=== PATIENT | male | born 1955 | race African-American/Black ===

== ENCOUNTER 2016-11-24 22:29 | Emergency (ER) | payer MEDICAID ==
[~2016-11-24] VITALS: Ht 170.2 cm; Wt 81.6 kg
[2016-11-24 22:35] VITALS: BP 115/70
[2016-11-24] MEDS ORDERED: NKM (22:42)
[2016-11-24 22:45] VITALS: BP 122/70
[2016-11-24] MEDS ORDERED: MECLIZINE HCL12.5 MG ORAL (23:05)
[2016-11-24] MEDS ORDERED: Meclizine 25mg tab ORAL ONE (23:15)
--- NOTE | 2016-11-24 23:26 | Emergency Room Report ---
History of Present Illness General Chief Complaint: Dizziness Source: Patient Present Illness HPI 61-year-old male no significant past medical history presenting with the room spinning for one day. Patient states that he experiences sudden onset room spinning/dizziness, states when he bent down to get something, last for 10 seconds and spontaneously resolves. Patient states also when he tried to lay down he also experienced some dizziness. Denies any headache, blurry vision, neck pain, nausea vomiting , facial drooping. Motor or sensory weakness Patient states he has never experienced dizziness in the past Allergies: Coded Allergies: No Known Allergies (Unverified , 11/24/16) Patient History Past Medical History: see triage record Past Surgical History: none Pertinent Family History: none Reviewed Nursing Documentation: PMH: Agreed, PSxH: Agreed Nursing Documentation-PMH Past Medical History: No Stated History Review of Systems All Other Systems: negative except mentioned in HPI Physical Exam Vital Signs Date Time Temp Pulse Resp B/P (MAP) Pulse Ox O2 Delivery O2 Flow Rate FiO2 11/24/16 22:35 97.9 91 16 115/70 96 Room Air Sp02 EP Interpretation: reviewed, normal General Appearance: normal inspection, well appearing, no apparent distress, alert, GCS 15, non-toxic Head: normocephalic, atraumatic Eyes: bilateral eye normal inspection, bilateral eye PERRL, bilateral eye EOMI ENT: normal ENT inspection, normal pharynx, normal voice, moist mucus membranes Neck: normal inspection, full range of motion, supple Respiratory: normal inspection, lungs clear, normal breath sounds, no respiratory distress, no retraction, no wheezing, speaking full sentences, chest symmetrical Cardiovascular #1: normal inspection, regular rate, rhythm, no edema, normal capillary refill Cardiovascular #2: 2+ radial (R), 2+ radial (L) Gastrointestinal: normal inspection, non tender, soft, non-distended, no guarding Genitourinary: no CVA tenderness Musculoskeletal: normal inspection, back normal, normal range of motion, non- tender Neurologic: normal inspection, alert, oriented x3, responsive, 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 tested, motor strength/tone normal, sensory intact, cerebellar normal, normal gait, speech normal Psychiatric: normal inspection, judgement/insight normal, memory normal Skin: normal inspection, normal color, no rash, warm/dry, well hydrated, normal turgor Medical Decision Making Diagnostic Impression: Primary Impression: Vertigo ER Course 61-year-old male with dizziness/room spinning DDX: Likely peripheral vertigo At this time not concerned with central vertigo as patient appears very well, not experiencing symptoms at this time, neurological exam is completely normal Plan: Meclizine ER course: Patient has remained stable during ED stay. Symptoms improved Disposition: Patient is to be discharged to home. Prescriptions given are meclizine Patient is instructed to follow up with their primary care doctor within 5 days. Strict return precautions discussed with patient such as fever, chills, worsening/severe pain, nausea, vomiting, headache, neck pain, blurry vision, motor or sensory weakness which may indicate severe illness. Patient verbalizes understanding and agrees with plan. Please note that this Emergency Department Report was dictated using [employer] technology software, occasionally this can lead to erroneous entry secondary to interpretation by the dictation equipment Rhythm Strip Diag. Results EP Interpretation: yes Rate: 70 Rhythm: NSR, no PVC's, no ectopy Last Vital Signs Date Time Temp Pulse Resp B/P (MAP) Pulse Ox O2 Delivery O2 Flow Rate FiO2 11/24/16 22:35 97.9 91 16 115/70 96 Room Air Disposition: HOME, SELF-CARE Condition: Improved Scripts Meclizine Hcl* (MECLIZINE*) 12.5 Mg Tablet 12.5 MG ORAL THREE TIMES A DAY for 7 Days, #21 TAB 0 Refills Prov: Sue Amador M.D. 11/24/16 Patient Instructions: Vertigo, Dizziness Additional Instructions: Please follow up with your primary care doctor within 3 days. Please take your prescription medication as directed. Please come back to the emergency room if you are having severe/worsening headache, nausea, vomiting, blurry vision, neck pain, inability to walk, arms or legs numbness or weakness. Sue Amador M.D. Nov 24, 2016 23:26
[2016-11-24 23:38] VITALS: BP 128/72
== END 2016-11-24 23:38 | disposition home or self-care (01) ==
LOC: EMR 23:00
DX: R42 Dizziness and giddiness (principal)
CPT/HCPCS: 99283